=== PATIENT | female | born 1945 | race Caucasian/White ===

== ENCOUNTER → 2020-03-14 | Outpatient (REF) | payer MEDICARE, MEDICAID ==
[2020-03-14 16:09] LABS: MALB URINE SIEMENS 23.3 MG/L; MAU/CREAT RATIO 22.6 MCG/MG (0.0-30.0)
== END ==
LOC: M LAB REF 14:55
PROVIDERS: ATTEND Nurse Practitioner Family
DX: E11.65 Type 2 diabetes mellitus with hyperglycemia (principal)

== ENCOUNTER → 2021-06-28 | Outpatient (REF) | payer MEDICARE, MEDICAID ==
[2021-06-28 19:02] LABS: CREATININE, URINE 73.5 MG/DL; MALB URINE SIEMENS 22.8 MG/L
== END ==
LOC: M LAB REF 17:11
PROVIDERS: ATTEND Nurse Practitioner Family
DX: E11.65 Type 2 diabetes mellitus with hyperglycemia (principal)